=== PATIENT | female | born 1940 | race Caucasian/White ===

== ENCOUNTER 2021-10-16 05:16 | Emergency (ER) | payer MEDICARE ==
[~2021-10-16] VITALS: Ht 157.5 cm; Wt 47.6 kg
== END 2021-10-16 07:48 ==
LOC: ER 05:20
DX: J44.9 Chronic obstructive pulmonary disease, unspecified (principal); R06.00 Dyspnea, unspecified; I10 Essential (primary) hypertension; E03.9 Hypothyroidism, unspecified
CPT/HCPCS: 99283